=== PATIENT | male | born 1975 | race Caucasian/White ===

== ENCOUNTER 2017-08-20 09:37 | Emergency (ER) | payer OTHER ==
[2017-08-20] MEDS: SOD CHLORIDE 0.9% 1,000 ML IV (10:20)
[2017-08-20 10:27] LABS: ADD MAN DIFF? NO
[2017-08-20 10:29] LABS: WHITE BLOOD COUNT 8.8 10^3/ul (4.8-10.8)
[2017-08-20 10:29] LABS: BASOPHILS % 0.2 % (0.0-2.0); EOSINOPHILS % 0.2 % (0.0-7.0); HEMATOCRIT 44.1 % (42.0-52.0); HEMOGLOBIN 15.2 g/dl (14.0-18.0); LYMPHOCYTES # 1.4 10^3/ul (0.8-2.9); LYMPHOCYTES % 16.4 % (15.0-51.0); MEAN CORPUSCULAR HEMOGLOBIN 30.6 pg (29.0-33.0); MEAN CORPUSCULAR HGB CONC 34.5 g/dl (32.0-37.0); MEAN CORPUSCULAR VOLUME 88.7 fl (82.0-101.0); MEAN PLATELET VOLUME 11.1 fl (7.4-10.4); MONOCYTE # 0.4 10^3/ul (0.3-0.9); MONOCYTES % 4.9 % (0.0-11.0); NEUTROPHIL # 6.8 10^3/ul (1.6-7.5); NEUTROPHILS % 77.5 % (39.0-77.0); PLATELET COUNT 247 10^3/UL (140-415); RED BLOOD COUNT 4.97 10^6/ul (4.70-6.10); RED CELL DISTRIBUTION WIDTH 13.2 % (11.5-14.5)
[2017-08-20 10:50] LABS: ANION GAP 17 (8-16); BLOOD UREA NITROGEN 11 mg/dl (7-20); CALCIUM 9.6 mg/dl (8.4-10.2); CARBON DIOXIDE 24 mmol/L (21-31); CHLORIDE 107 mmol/L (97-110); GLUCOSE 351 mg/dl (70-220); POTASSIUM 4.1 mmol/L (3.5-5.1); SODIUM 144 mmol/L (135-144)
[2017-08-20 11:02] LABS: TROPONIN-I < 0.012 ng/ml (0.000-0.120)
[2017-08-20 11:04] LABS: ADD UMIC NO; UR ASCORBIC ACID NEGATIVE (NEGATIVE); UR BILIRUBIN (Dip) NEGATIVE (NEGATIVE); UR BLOOD (Dip) NEGATIVE (NEGATIVE); UR CLARITY CLEAR (CLEAR); UR COLOR STRAW (YELLOW); UR GLUCOSE (Dip) 3+ mg/dL (NEGATIVE); UR KETONES (Dip) TRACE mg/dL (NEGATIVE); UR LEUKOCYTE ESTERASE (Dip) NEGATIVE Leu/ul (NEGATIVE); UR NITRITE (Dip) NEGATIVE (NEGATIVE); UR SPECIFIC GRAVITY (Dip) 1.007 (1.003-1.030); UR TOTAL PROTEIN (Dip) NEGATIVE (NEGATIVE); UR UROBILINOGEN (Dip) NEGATIVE (NEGATIVE)
[2017-08-20 11:11] LABS: AADO2 Venous 66.2 mmHg; MODE ROOM AIR; MetHgb Venous 0.3 %; Sample Type Blood venous; Site OTHER; Venous COHb 0.8 %; Venous Fraction OxyHgb 70.3 %; Venous Oxygen Sat 71.1 mmHG (55.0-75.0); Venous Total Hemglobin 15.5 g/dl
[2017-08-20 11:25] LABS: B-TYPE NATRIURETIC PEPTIDE 32 PG/ML (0-125)
== END 2017-08-20 11:56 | disposition home or self-care (01) ==
LOC: FTE 09:37
DX: E11.65 Type 2 diabetes mellitus with hyperglycemia (principal); I10 Essential (primary) hypertension
CPT/HCPCS: 36415; 71045; 80048; 81003; 82803; 82962; 83880; 84484; 85025; 93005; 96360; 99285-25